=== PATIENT | male | born 1980 | race Caucasian/White ===

== ENCOUNTER 2022-10-12 02:34 | Emergency (ER) | payer OTHER ==
[~2022-10-12] VITALS: Ht 185.4 cm; Wt 95.2 kg
[~2022-10-12 02:34] MED LIST: ACET325; IBUP400; Naprosyn500 MG PO; Veetids 500500 MG PO
[2022-10-12] MEDS ORDERED: Amoxicillin875 MG PO (03:08)
== END 2022-10-12 03:15 | disposition home or self-care (01) ==
LOC: ER 02:34
DX: K11.20 Sialoadenitis, unspecified (principal); F17.200 Nicotine dependence, unspecified, uncomplicated
CPT/HCPCS: 99282

== ENCOUNTER 2023-08-21 08:02 | Emergency (ER) | payer OTHER ==
[~2023-08-21] VITALS: Ht 182.9 cm; Wt 95.2 kg
[~2023-08-21 08:02] MED LIST changes: +Amoxicillin875 MG PO
[2023-08-21 09:42] VITALS: BP 144/98
== END 2023-08-21 10:32 | disposition home or self-care (01) ==
LOC: ER 08:02
DX: M25.551 Pain in right hip (principal); F17.200 Nicotine dependence, unspecified, uncomplicated; W18.40XA Slipping, tripping and stumbling without falling, unspecified, initial encounter; Y99.0 Civilian activity done for income or pay
CPT/HCPCS: 73502; 99283-25